=== PATIENT | male | born 1970 | race African-American/Black ===

== ENCOUNTER 2017-08-05 20:06 | Emergency (ER) | payer SELFPAY ==
[2017-08-05 20:44] LABS: #Basophils 0.1 thou/uL (0.0-0.2); #Eosinphils 0.2 thou/uL (0.0-0.7); #Lymphocytes 1.9 thou/uL (1.20-3.40); #Monocytes 0.6 thou/uL (0.11-0.59); #Neutrophils 5.6 thou/uL (1.40-6.50); %Basophils 1.2 % (0.0-1.0); %Eosinophils 2.3 % (0.0-10.0); %Lymphocytes 22.3 % (21.0-51.0); %Monocytes 7.1 % (0.0-10.0); Hematocrit 48.5 % (42.0-52.0); Mean Platelet Volume 6.7 fL (7.4-10.4); Red Blood Cell (RBC) Count 5.56 mill/uL (4.70-6.10); White Blood Cell (WBC) Count 8.4 thou/uL (4.8-10.8)
[2017-08-05 21:02] LABS: Bilirubin Negative (Negative); Blood, Urine Negative (Negative); Glucose, Urine (Dipstick) Negative (Negative); Ketone, Urine Negative (Negative); Nitrite Negative (Negative); Protein, Urine (Dipstick) Negative (Neg-Trace); Urobilinogen 0.2 mg/dL (0.2-1.0)
[2017-08-05 21:05] LABS: ALT (SGPT) 10 U/L (8-55); AST (SGOT) 15 U/L (5-34); Alkaline Phosphatase 67 U/L (40-150); Anion Gap 13 mmol/L (10-20); BUN (Urea Nitrogen) 19 mg/dL (8.9-20.6); Bilirubin, Total Less than 0.2 mg/dL (0.2-1.2); Calc. Creatinine Clearance 0 mL/min (70-130); Calcium 9.2 mg/dL (7.8-10.44); Carbon Dioxide 24 mmol/L (22-29); Chloride 104 mmol/L (98-107); Estimated GFR-MDRD 82; Globulin 3.1 g/dL (2.4-3.5); Protein, Total 6.8 g/dL (6.0-8.3)
[2017-08-05 21:06] LABS: Acetaminophen Less than 6.0 mcg/mL (10.0-30.0); CK (CPK) 141 U/L (30-200); Salicylate Less than 8.0 mg/dL (15.0-30.0)
[2017-08-05 21:10] LABS: Troponin I Less than 0.010 ng/mL (< 0.028)
[2017-08-05 21:13] LABS: Amphetamine Not Detected (NotDetected); Methadone Not Detected (NotDetected); Methamphetamine Not Detected (NotDetected)
--- NOTE | 2017-08-05 22:33 | RAD ---
RADIOGRAPH CHEST 1 VIEW: DATE: 08/05/2017 TIME: 8:19 p.m. HISTORY: A 46-year-old male found unresponsive. FINDINGS: There is hyperinflation of the lungs, consistent with COPD. There is no evidence of air space densi ty, pneumothorax, or pulmonary edema. The lateral costophrenic angles are sharp. There are large, severe right apical bullae. There is also hypolucency of the left apex, consistent with bullous dis ease. The cardiomediastinal silhouette is normal. There is no interval change since 02/12/2016. T here is horizontal, thin radiodensity represents subsegmental atelectasis or scar at the right mid l daryl zone. IMPRESSION: 1) No acute pulmonary findings. 2) Severe emphysema. dolores [] POS: ADELINE
== END 2017-08-05 22:11 | disposition home or self-care (01) ==
LOC: ERS 20:06
DX: F12.10 Cannabis abuse, uncomplicated (principal); J44.9 Chronic obstructive pulmonary disease, unspecified; F17.210 Nicotine dependence, cigarettes, uncomplicated
CPT/HCPCS: 36415; 71010; 80053; 80306; 80307; 81003; 82550; 82553; 84484; 85025; 93005; 96360